=== PATIENT | female | born 1965 | race Caucasian/White ===

== ENCOUNTER → 2017-09-27 13:47 | Outpatient (POV) | payer MEDICARE, MEDICAID, SELFPAY | PROVIDERS: Visit Provider Internal Medicine | DX: Z00.00 Encounter for general adult medical examination without abnormal findings (principal) ==

== ENCOUNTER → 2018-04-04 13:32 | Outpatient (POV) | payer MEDICARE, MEDICAID, SELFPAY | PROVIDERS: Visit Provider Internal Medicine | DX: Z00.00 Encounter for general adult medical examination without abnormal findings (principal) ==

== ENCOUNTER → 2018-12-05 12:54 | Outpatient (POV) | payer MEDICARE, MEDICAID, SELFPAY | PROVIDERS: Visit Provider Internal Medicine | DX: Z00.00 Encounter for general adult medical examination without abnormal findings (principal) ==

== ENCOUNTER → 2018-12-11 14:22 | Outpatient (CLI) | payer MEDICARE, MEDICAID, SELFPAY ==
[2018-12-11 15:20] VITALS: PULSE 80; PULSE 84
== END ==
PROVIDERS: PCP Physician Assistant; Visit Provider Internal Medicine
DX: J45.909 Unspecified asthma, uncomplicated (principal); R06.02 Shortness of breath
CPT/HCPCS: 94060; 94640

== ENCOUNTER → 2019-03-13 15:56 | Outpatient (POV) | payer MEDICARE, MEDICAID, SELFPAY | PROVIDERS: Visit Provider Internal Medicine | DX: Z00.00 Encounter for general adult medical examination without abnormal findings (principal) ==

== ENCOUNTER 2019-04-02 09:00 | Outpatient (RCR) | payer MEDICARE, MEDICAID, SELFPAY | END 2019-04-25 15:41 | disposition home or self-care (01) | LOC: PT.CARL 09:00 | PROVIDERS: PCP Physician Assistant; Visit Provider Podiatrist Foot & Ankle Surgery | DX: M76.62 Achilles tendinitis, left leg (principal); M72.2 Plantar fascial fibromatosis | CPT/HCPCS: 97014; 97033; 97035; 97110; 97112; 97140; 97163; 97164; G0283 ==

== ENCOUNTER 2020-06-06 10:12 | Emergency (ER) | payer MEDICARE, MEDICAID, SELFPAY ==
--- NOTE | 2020-06-06 10:13 | XR_ITS ---
PROCEDURE: XR CHEST 2V CLINICAL HISTORY: cough COMPARISON: No exams were available for comparison FINDINGS: The cardiomediastinal silhouette and pulmonary vascularity are within normal limits. Suspect COPD changes. There is calcified granuloma in the superior segment of the right lower lobe and calcified nodes are present in the mediastinum. No acute bony abnormalities. IMPRESSION: COPD. No acute finding Dictated by: Jerry Caputo MD 06/06/2020 10:36 Jerry Caputo MD in [place] 06/06/2020 10:36
[2020-06-06 10:20] VITALS: BP 137/75; PULSE 84; RESP 20; TEMP 36.9; O2SAT 97; BMI 25.0
--- NOTE | 2020-06-06 10:41 | HMH.EDUTC ---
[facility] [place] Clinical Impression: COPD exacerbation Disposition: Home, Self-Care Condition on Discharge: Good Instructions: DI for Chronic Obstructive Pulmonary Disease Prescriptions: predniSONE [Prednisone 20mg Tab] 20 mg PO BID 5 Days #10 tab Transmission Status: Pending to [facility] Azithromycin [Zithromax 500mg Tab] 500 mg PO DAILY #3 tab Transmission Status: Pending to [facility] Referrals: Navya Fall APRN [Primary Care Provider] - Time of Disposition: 10:50 Medical Decision Making - Cr Inquiry Pt receiving controlled substance: No Vital Signs: 06/06/20 10:20 Temperature 98.4 F Temperature Source Oral Pulse Rate [Right Brachial] 84 Respiratory Rate 20 Blood Pressure [Right Arm] 137/75 Blood Pressure Mean [Right Arm] 95 02 Sat by Pulse Oximetry 97 Oxygen Delivery Method Room Air - Radiology Data #1 Image(s): Chest Image Reviewed: Yes I have reviewed radiologist's interpretation Preliminary Findings: Normal/NAD [facility] [place] HPI - General Stated complaint: Possible pneumonia Time Seen by Provider: 06/06/20 10:41 Mode of Arrival: Ambulatory Source of Information: Patient Limitations: No Limitations Description of Symptoms (Recalled from Triage Doc. by RN): PATIENT STATES SHE SPOKE WITH [facility] ON TUESDAY WITH C/O LEFT UPPER BACK PAIN. PATIENT STATES SHE WAS INFORMED BY THE CLINIC TO COME HERE FOR A CHEST X-RAY AND BLOOD WORK TO CHECK HER FOR PNEUMONIA. DENIES FEVER, COUGH, OR SOA. HEENT Symptoms (Recalled from RN notes): No Resp Symptoms (Recalled from RN notes): No Skin Symptoms (Recalled from RN notes): No MS Symptoms (Recalled from RN notes): Yes Functional Status (Recalled from RN notes): WNL - History of Present Illness Provider Complaint: Shortness of breath, pain across back, wheezing X 3-4 days. No fever. No vomiting or diarrhea. No chest pain or hemoptysis. No loss of taste or smell. History of asthma/COPD. Has albuterol inhaler. Onset (ago): day(s) (4) Location: chest Relieving factors: none Exacerbating factors: none Associated symptoms: cough Treatments prior to arrival: none - Related Data Previous Rx's Medication Instructions Recorded Azithromycin [Zithromax 500mg 500 mg PO DAILY #3 tab 06/06/20 Tab] predniSONE [Prednisone 20mg 20 mg PO BID 5 Days #10 tab 06/06/20 Tab] Allergies Allergy/AdvReac Type Severity Reaction Status Date / Time No Known Allergies Allergy Verified 06/06/20 10:41 - Worker's Comp Is this a Worker's Comp case?: No [facility] History - Hepatitis A Screen Drug use history?: No High risk sexual behaviors?: No History of sexually transmitted infection?: No Currently employed?: No Childcare worker?: No Do you have indoor plumbing?: Yes Do you have electricity?: Yes Attestation statement:: This patient has been screened for Hepatitis A risk factors. I have reviewed the patient's past medical history: Yes Laterality Cases: Bilateral: Tonsillectomy - Social History Alcohol Intake: never Occupational Status: other ROS Obtained: Yes All systems reviewed & no additional complaints - Respiratory Respiratory: Reports shortness of breath, Reports dyspnea Physical Exam - General General appearance: alert, in no apparent distress - Head Head exam: atraumatic, normocephalic, normal inspection - Eye Eye exam: Present: normal appearance, PERRL, EOMI - ENT ENT exam: Present: normal exam, normal oropharynx, mucous membranes moist, TM's normal bilaterally, normal external ear exam - Neck Neck exam: Present: normal inspection, full ROM, trachea midline. Absent: meningismus, lymphadenopathy - Chest Chest inspection: Present: normal inspection, symmetric chest wall rise. Absent: tenderness - Respiratory Respiratory exam: Present: wheezes. Absent: respiratory distress - Cardiovascular Cardiovascular exam: Present: regular rate, normal rhythm. Absent: JVD - Abdo
[2020-06-06 11:05] VITALS: BP 137/75; PULSE 84; RESP 20; TEMP 36.9; O2SAT 97
== END 2020-06-06 11:07 | disposition home or self-care (01) ==
PROVIDERS: Emergency Provider Physician Assistant; PCP Nurse Practitioner Family
DX: J44.1 Chronic obstructive pulmonary disease with (acute) exacerbation (principal); Z79.899 Other long term (current) drug therapy
CPT/HCPCS: G0463; 71046; 99202

== ENCOUNTER → 2021-05-05 07:54 | Outpatient (CLI) | payer MEDICARE, MEDICAID, SELFPAY ==
--- NOTE | 2021-05-05 08:45 | PC.NURSE ---
PFT and 6 minute walk test completed without incident. Albuterol 0.083% given via HHN, per protocol, Pt tolerated well.
[2021-05-05 10:46] LABS: Basophils % 0.7 % (0.1-2.0); Eosinophils # 0.2 K/mm3 (0.0-0.4); Eosinophils % 2.8 % (0.1-12.0); Hematocrit 43.8 % (37.0-47.0); Hemoglobin 14.7 g/dL (12.2-16.2); Lymphocytes # 2.1 K/mm3 (0.7-4.5); Lymphocytes % 37.8 % (10-50); Mean Corpuscular HGB Conc 33.6 g/dL (31.8-35.4); Mean Corpuscular Hemoglobin 30.6 pg (27.0-31.2); Mean Corpuscular Volume 91.2 fl (81-99); Mean Platelet Volume 7.4 fl (7.4-10.4); Monocytes # 0.3 K/mm3 (0.1-1.0); Monocytes % 6.2 % (1.7-9.3); Neutrophils # 2.9 K/mm3 (1.8-7.8); Neutrophils % 52.4 % (37.0-80.0); Platelet Count 219 K/mm3 (142-424); Red Cell Distribution Width 12.8 % (11.5-17.5); White Blood Count 5.5 K/mm3 (4.8-10.8)
[2021-05-08 19:12] LABS: D001-IgE D pteronyssinus <0.10 kU/L (Class 0); D002-IgE D farinae <0.10 kU/L (Class 0); E001-IgE Cat Dander <0.10 kU/L (Class 0); E005-IgE Dog Dander 0.13 kU/L (Class 0/I); E072-IgE Mouse Urine <0.10 kU/L (Class 0); G002-IgE Bermuda Grass <0.10 kU/L (Class 0); G006-IgE Timothy Grass <0.10 kU/L (Class 0); I006-IgE Cockroach, German 3.81 kU/L (Class III); Immunoglobulin E, Total 103 IU/mL (6-495); M001-IgE Penicillium chrysogen <0.10 kU/L (Class 0); M002-IgE Cladosporium herbarum <0.10 kU/L (Class 0); M003-IgE Aspergillus fumigatus <0.10 kU/L (Class 0); M006-IgE Alternaria alternata <0.10 kU/L (Class 0); T001-IgE Maple/Box Elder <0.10 kU/L (Class 0); T003-IgE Common Silver Birch <0.10 kU/L (Class 0); T006-IgE Cedar, Mountain <0.10 kU/L (Class 0); T007-IgE Oak, White <0.10 kU/L (Class 0); T008-IgE Elm, American <0.10 kU/L (Class 0); T010-IgE Walnut 0.22 kU/L (Class 0/I); T011-IgE Maple Leaf Sycamore <0.10 kU/L (Class 0); T014-IgE Cottonwood <0.10 kU/L (Class 0); T015-IgE Ash, White 0.22 kU/L (Class 0/I); T022-IgE Pecan, Hickory <0.10 kU/L (Class 0); T070-IgE White Mulberry <0.10 kU/L (Class 0); W001-IgE Ragweed, Short <0.10 kU/L (Class 0); W011-IgE Thistle, Russian <0.10 kU/L (Class 0); W014-IgE Pigweed, Common <0.10 kU/L (Class 0); W018-IgE Sheep Sorrel <0.10 kU/L (Class 0)
== END ==
PROVIDERS: PCP Nurse Practitioner Family; Visit Provider Internal Medicine Pulmonary Disease
DX: R06.00 Dyspnea, unspecified (principal); J45.909 Unspecified asthma, uncomplicated
CPT/HCPCS: 36415; 82785; 85025; 86003; 94060; 94618; 94726; 94729

== ENCOUNTER 2022-09-21 09:00 | Outpatient (RCR) | payer MEDICARE, MEDICAID, SELFPAY | END 2022-10-01 12:20 | disposition home or self-care (01) | LOC: PT 09:00 | PROVIDERS: PCP Family Medicine; Visit Provider Nurse Practitioner | DX: M54.2 Cervicalgia (principal) | CPT/HCPCS: 20560; 97010; 97012; 97014; 97035; 97110; 97140; 97163; 97164; G0283 ==

== ENCOUNTER 2024-12-10 12:48 | Outpatient (CLI) | payer MEDICARE, MEDICAID, SELFPAY ==
--- OUTSIDE RECORDS SUMMARY | 2024-12-10 12:51 | XMS_ITS | Data Portability ---
Author Organization [facility] ADMIN Address [address] [place] [id number] Assessment No assessment recorded. Plan of Treatment Reminders Order Date Submit Date Provider Last Modified By Organization Details Last Modified Time Details Appointments None record ed. Lab None record ed. Referral None record ed. Procedures None record ed. Surgeries None record ed. Imaging None record ed. Medication Orders None record ed. Patient TargetsNo targets recorded. Patient InstructionsNo instructions recorded. Reason for Referral None Reported. Results Created Date Observation Date Name Description Value Unit Range Abnormal Flag Note LastModifiedBy Organization Detail LastModifiedTime 07/20/19 23 07/20/2022 audio gram No observ ation record ed. BARCODE Not Available 2022 17:00:17 Result Notes None recorded. Problems Name Problem SNOMED Code Status Onset Date Resolution Date Notes Provider Name and Address Organization Details Recorded Time Abnormal auditory perception [id number] Active 023 EDIN MAURERTZ, AUD [address] [facility], [place], [address] , [facility] & [place] 16:56:38 Problem Notes None recorded. Procedures Surgical History Date Name Laterality Status Provider Name and Address Organization Details Recorded Time colonoscopy completed Ava Condon [facility] & [place] 07/20/2022 16:42:43 Imaging Results None recorded. Procedure Notes None recorded. Medical Equipment None Reported. Allergies No known drug allergies Medications Name Sig Start Date Stop Date Status Note LastModified by Organization Details LastModified Time neomycin-po lymyxin-hyd rocort 3.5 mg/mL-10,00 0 unit/mL-1 % ear solution INSTILL 10 DROPS INTO AFFECTED EAR(S) BY OTIC ROUTE EVERY 6 HOURS 07/20 completed Not Available Not Available Not Available ipratropium 0.5 mg-albutero l 3 mg (2.5 mg base)/3 mL nebulizatio n soln active Not Available Not Available Not Available azithromyci n 250 mg tablet 07/20 completed Not Available Not Available Not Available citalopram 10 mg tablet active Not Available Not Available Not Available prednisone 20 mg tablet 07/20 completed Not Available Not Available Not Available prednisone 10 mg tablets in a dose pack 07/20 completed Not Available Not Available Not Available montelukast 10 mg tablet active Not Available Not Available Not Available diclofenac sodium 50 mg tablet,iesha yed release active Not Available Not Available Not Available albuterol sulfate HFA 90 mcg/actuati on aerosol inhaler active Not Available Not Available Not Available fluticasone propionate 50 mcg/actuati on nasal spray,suspe nsion active Not Available Not Available Not Available cholecalcif rama (vitamin D3) 1,250 mcg (50,000 unit) capsule active Not Available Not Available Not Available Breo Ellipta 200 mcg-25 mcg/dose powder for inhalation active Not Available Not Available N ot Available Vitals Date Recorded Body height Body mass index (BMI) Body weight Body temperature Heart rate Systolic And Diastolic Provider Name and Address Organization Details Last Updated DateTime 3 167.64 cm 24.7 kg/m2 60589.6 3 g 97.3 [degF] 75 /min 106/68 mm[Hg] [facility] & [place] 3 16:40:10 Social History None recorded. Functional Status None recorded. Mental Status None recorded. Family History Nothing Reported. Medical History No medical history recorded. Gynecological HistoryNo gynecological history recorded. Obstetrics History GPAL:G 0 P 0 0 0 0 Past Encounters Encounter ID Performer Location Encounter Start Date Encounter Closed Date Diagnosis/Indication Diagnosis SNOMED-CT Code Diagnosis ICD10 Code Diagnosis Note [id number] Lavern Cuevas MD [facility] [facility], [place] [address] 07/20/2022 16:29:48 07/20/2022 17:02:57 Pain of temporomandibular joint 98793329 M26.629 Audiogram in office today was within normal limits and was her tympanogra m. She does not have fluid on either ear today. She is painful when palpated on both TMJs. I suspect this is the source of her otalgia. I would like for her try taking ibuprofen when she starts to notice the fullness in her ears. I asked that she call the office should this not help. I will see her back as needed and would need to see her during an acute episode. [id number] PABLO RYAN [facility] [address] [place] [address], [facility] [place] [address] 07/20/2022 16:44:56 07/20/2022 16:54:26 Abnormal auditory perception 15917188 H93.299 Health Concerns Section Related Observation LastModified by Organization Detai ls LastModified Time None Recorded Concern Status LastModified by Organization Details LastModified Time None Recorded Advance Directives Directive None Recorded Payers Insurance Date Sequence Insurance Name Policy Number Policy Hope Covered Member ID Hope Member ID Guarantor Name 12/10/2023 1 [place] Rupal Spearsangel [id number] Rupal Spearsangel 01/31/2019 2 [place] Rupal Spearsrow [id number] Rupal Spearsangel 12/10/2023 2 [place] Rupal Spearsangel [id number] Rupal Spearsangel 12/10/2023 1 [employer] (MEDICARE REPLACEMENT/A DVANTAGE - PPO) Rupal Spearsangel [id number] Rupal Spearsangel 12/10/2023 2 [employer] [place] (MEDICAID HMO) Rupal Spearsangel [id number] Rupal Uriarte Notes Date Note Type Note Provider Name and Address Organization Details Recorded Time 07/20/2022 text/html 56yo female in t he office today to discuss ear fullness and decreased hearing. States she was recently treated with oral antibiotics and oral steroid for an ear infection. States she will sometimes have decreased hearing when her ear feels full. Also complains of jaw pain. Lavern Cuevas MD [address], [place], [address], [place] - [facility] - [place] & [place] 07/23/2022 09:37:09 07/20/2022 text/html Ms. Uriarte was seen today for an audiologic evaluation due to ongoing symptoms of R sided otalgia, R sided fullness , and occasional muffled hearing per Dr. Lavern Cuevas MD. Ms. Uriarte denies hearing loss, dizziness/vertigo, and excessive noise exposure. Otoscopic inspection was unremarkable bilaterally. EDIN MEEHAN, AUD [address] [facility], [place], [address], [facility] - [place] - [place] & [place] 07/20/2022 16:57:13 OBGyn Episode No OBEpisode recorded.
--- OUTSIDE RECORDS SUMMARY | 2024-12-10 12:51 | XMS_ITS | Clinical Summary ---
Author Organization [facility] ([place], [place], [place], [place]) Address [address] [place] [address] Care Team Providers Care Staff Radiation Therapist Name Role Phone RuslanBillie Maggie MURILLO Primary Care Provider [phone] Allergies No known active allergies Medications ibuprofen (ADVIL,MOTRIN) 800 MG tablet Take 1 tablet (800 mg total) by mouth 3 (three) times daily as needed. 12/24/2022 Active Breo Ellipta 200-25 mcg/dose DsDv 1 puff daily. 12/27/2022 Active fluticasone propionate (FLONASE) 50 mcg/actuation nasal spray 1 spray daily. 11/05/2022 Active Social History Tobacco Use Types Packs/Day Years Used Date Smoking Tobacco: Never Smokeless Tobacco: Never Tobacco Cessation:Counseling Given: Not Answered Alcohol Use Standard Drinks/Week Comments Not Currently 0 (1 standard drink = 0.6 oz pur e alcohol) Food Insecurity Answer Date Recorded Food run out past 12 months Not on file 05/23 Food did not last past 12 months Not on file 06/10/2023 Employment Answer Date Recorded Help finding and keeping a job Not on file 0 06/10/2023 Family and Community Support Answer Salvatore e Recorded Help with Day to Day Activities Not on file 06/10/2023 Feeling Lonely or Isolated Not on file 06/10 Educational Attainment Answer Date Ermias rded Speak language other than Uzbek at home Not on file 06/10/2023 Want help with school or training Not on file 06/10/2023 Substance Use Answer Date Recorded Used prescription meds for non-medical reasons N ot on file 06/10/2023 Used illegal drugs past 12 months Not on file 06/10/2023 Comments Unknown Sex and Gender Information Value Date Recorded Sex Assigned at Not on file Legal Sex Female 5:58 PM CDT Gender Identity Not on file Sexual Orientation Not on file Last Filed Vital Signs Vital Sign Reading Time Taken Comments Blood Pressure 126/80 02/03/2023 10:38 AM EDT Pulse 69 02/03/2023 10:38 AM EDT Temperature - - Respiratory Rate - - Oxygen Saturation - - Inhaled Oxygen Concentration - - Weight 69.3 kg (152 lb 12.8 oz) 023 10:38 AM EDT Height 167.6 cm (5' 6 ) 02/03/2023 10:3 8 AM EDT Body Mass Index 24.66 02/03/2023 10:38 AM EDT Plan of Treatment Health Maintenance Due Date Last Done Comments CT Colonography 1965 Colonoscopy 1965 Colorectal Cancer Screening 1965 FOBT/FIT 1965 Fit-DNA (Cologuard) 1965 Sigmoidoscopy 1965 Depression Screening (12+) 1977 Tobacco Cessation Counseling and Screening (12+) 1977 HIV Screening 1980 Hepatitis C Screening 11/04/1983 Pap Smear 1986 Breast Cancer Screening 2005 Lipid Panel 2010 Pneumococcal 50+ years (1 of 1 - PCV) 11/04/2015 Shingles Vaccine (Zoster) (1 of 2) 11/04/2015 DTAP/TDAP/TD VACCINES (3 - Td or Tdap) 02/07/2022, 12/21/2011 Medicare Initial AWV [id number] 05/24/2022 COVID-19 VACCINE ( - season) 2024 Influenza Vaccine (#1) 2025 05/23/2013 Insurance [employer] MEDICARE PPO Care Teams Staff Radiation Therapist Relationship Specialty Start Date End Date Billie Mercer, REHABILITATION MEDICINE PHYSICIAN [address] [place] [address] PCP - General Family Medicine 01/27/23
--- OUTSIDE RECORDS SUMMARY | 2024-12-10 12:51 | XMS_ITS | Clinical Summary ---
Author Organization Healthcare Address [address] [place] [address] Care Team Providers Care Ear Nose Throat Physician Name Role Phone Unavailable Primary Care Provider Unavailabl e Immunizations Immunization Administration Dates Next Due Influenza, seasonal, injectable 05/23/2013 Family History Medical History Relation Name Comments Diabetes Other Lung cancer Sibling Relation Name Status Comments Other Sibling Social History Tobacco Use Types Packs/Day Years Used Date Smoking Tobacco: Never Comments Unknown Sex and Gender Information Value Date Recorded Sex Assigned at Not on file Legal Sex Female 8:55 PM EDT Gender Identity Not on file Sexual Orientation Not on file Last Filed Vital Signs Vital Sign Reading Time Taken Comments Blood Pressure 105/60 03/13/2019 3:45 PM EDT Pulse 73 03/13/2019 3:45 PM EDT Temperature 36.4 C (97.6 F) 03/13/2019 3:45 PM EDT Respiratory Rate 16 03/13/2019 3:45 PM EDT Oxygen Saturation - - Inhaled Oxygen Concentration - - Weight 69.1 kg (152 lb 6.1 oz) 03/13/2019 3:45 P M EDT Height 167.6 cm (5' 6 ) 03/13/2019 3:45 PM EDT Body Mass Index 24.6 03/13/2019 3:45 PM EDT Plan of Treatment Health Maintenance Due Date Last Done Comments [facility]-Depression Screening 1965 [facility]-/Child/Adol SDOH Screenings 1965 [facility]- SDOH Screenings 11/04/1983 [facility]-Adult SDOH Screenings 11/04/1983 [facility]-DTaP,Tdap,and Td Vaccine s (1 - Tdap) 1984 [facility]-Hepatitis B Vaccines (1 of 3 - 19+ 3-dose series) 1984 [facility]-Pap Smear 1986 [facility]-Cervical Cancer Screening 11/04/1995 [facility]-HPV/Cotest 11/04/1995 CT Colonography 2010 Colonoscopy 2010 FIT-DNA 2010 FIT 2010 FOBT 2010 Sigmoidoscopy 2010 [facility]-Colorectal Cancer Screening 2010 [facility]-Pneumococcal Vaccine: 50 + Years (1 of 1 - PCV) 11/04/2015 [facility]-Zoster Vaccines (1 of 2) 11/04/2015 XPH-SAOTL-52 Vaccine (1 - 20 24-25 season) 2024 [facility]-Influenza Vaccine (#1) 2025 05/23/2013 HPV Vaccines Aged Out No longer eligi ble based on patient's age to complete this topic [facility]-HIB Vaccines Aged Out No longer e ligible based on patient's age to complete this topic [facility]-Hepatitis A Vaccines Aged Out No longer eligible based on patient's age to complete this topic [facility]-IPV Vaccines Aged Out No longer e ligible based on patient's age to complete this topic [facility]-Rotavirus Vaccines Aged Out No lo nger eligible based on patient's age to complete this topic
--- OUTSIDE RECORDS SUMMARY | 2024-12-10 12:51 | XMS_ITS | Referral Summary ---
Author Organization [employer] ([place], [place], [place], [place]) Address [address] [place] [address] Care Team Providers Care Director Voice Name Role Phone RuslanBillie Maggie MURILLO Primary Care Provider [phone]- [phone] Allergies No known active allergies Medications ibuprofen [...] Date Ermias rded Speak language other than British at home Not on file 06/10/2023 Want [...] 02/03/2023 10:38 AM EDT Plan of Treatment Not on file Insurance [facility] HU[employer] MEDICARE PPO Care Teams Director Voice Relationship Specialty Start Date End Date Billie Mercer, DOG TRACK KENNEL MANAGER [address] [place] [address] PCP - General Family Medicine 01/27/23
--- OUTSIDE RECORDS SUMMARY | 2024-12-10 12:51 | XMS_ITS | Data Portability ---
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 We will change medication to cetirizine as noted below. We will treat symptoms based on allergic rhinitis and seasonal allergies. Advised patient to return if symptoms do not improve over the next week. [place] [id number] Not available 10/07/2022 15:25:31 Plan of Treatment Reminders Order Date Submit Date Provider Last Modified By Organization Details Last Modified Time Details Appointments None recorded. Lab rapid strep group A, throat [address], [address], 3 15:08:05 rapid strep group A, throat 2021 022 [email or web address], [address], 13:06:50 rapid flu (A+B) 2021 022 [email or web address] [address], [address], 12/09/202 2 13:06:50 rapid SARS CoV 2 Ag, QL, IA, upper respiratory specimen 2021 022 [email or web address] 2 [facility], [address] [place] [address], [address], 2 13:06:50 Referral otolaryngol ogist referral 2022 023 CRISTOPHER Cuevas MD, [address] [place], [address], 3 11:13:15 Procedures None recorded. Surgeries None recorded. Imaging XR, foot, 3 or more view 2022 023 CRISTOPHER Not available 3 08:48:35 XR, cervical spine, 2 or 3 view 2022 023 [facility] Centralized Scheduling, [address] [place], [address], 3 13:47:27 XR, knee, 3 view 2022 023 [facility] Centralized Scheduling, [address] [place], [address], 3 13:48:38 MAMMO, screening, bilateral [email or web address] (Radiology), [address] [place], [address], 3 10:49:01 Medication Orders prednisone 20 mg tablet 2022 023 [facility], [address] [place] [address], [address], 3 16:29:20 ibuprofen 800 mg tablet 2022 023 [facility], [address] [place] [address], [address], 3 16:29:20 cetirizine 10 mg tablet 2022 023 [facility], [address] [place] [address], [address], 3 15:21:28 fluticasone propionate 50 mcg/actuati on nasal spray,suspe nsion 2022 023 [facility], [address] [place] [address], [address], 3 15:21:28 Zithromax Z-Scott 250 mg tablet 2022 023 [email or web address] 3 [facility], [facility] [place], [address], 3 09:40:13 prednisone 20 mg tablet 2022 023 [email or web address] 3 [facility], [facility] [place], [address], 3 09:40:38 azithromyci n 250 mg tablet 2021 022 [email or web address] 3 [facility], [facility] [place], [address], 3 09:40:13 Patient TargetsNo targets recorded. Patient InstructionsNo instructions recorded. 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 No furth er testi ng will be perfo rmed. If clini ortega indic ated, recol lecti on using a metho d to minim ize conta minat ion, with promp t trans archana to Urine Cultu re Trans port Tube, is recom urszula d. NO COLLE CTION DATE RECEI PRINCESS. WE HAVE USED THE DATE THE SPECI MEN WAS RECEI PRINCESS BY THIS LABOR ATORY THE COLLE CTION DATE. IF THIS IS INCOR RECT, PLEAS E CONTA CT CLIEN T SERVI SOCORRO. PHONE NUMBE R: [phone] Not Available [employer] [place], [place], [address] 04/22/2022 20:45:17 04/30/20 22 04/30/2022 rapid SARS CoV 2 Ag, QL, IA, upper respi rator y speci men SARS CoV Ag negati ve Not Available [address], [address], 04/30/2022 10:58:00 04/30/20 22 04/30/2022 rapid flu (A+B) Flu A negati ve Not Available [address], [address], 04/30/2022 10:57:52 04/30/20 22 04/30/2022 rapid flu (A+B) Flu B negati ve Not Available [address], [address], 04/30/2022 10:57:52 04/30/20 22 04/30/2022 rapid strep group A, throa t Strep negati ve Not Available [address], [address], 04/30/2022 10:57:34 10/08/19 23 10/07/2022 rapid strep group A, throa t Strep negati ve Not Available [address], [place], [address], 10/07/2022 14:54:14 07/24/19 23 07/23/2022 XR, cervi kika spine , 2 or 3 view [facility] [address] [place] 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 There is mild narrow ing of the C4-5 disc with mild spurri ng. There is severe narrow ing at C5-6 disc with mild to modera te spurri ng and mild retrol isthes is of C5 on C6. Remain ing disc height s appear mainta ined and alignm ent otherw ise appear s normal . Impres heather: Degene rative disc diseas e as detail ed. Dictat ed By: RENETTA WOODS Transc ribed By: sylvie giraldo Transc ribed On: 07/24/19 11:37 AM Electr onical ly signed by: RENETTA WOODS 07/24/19 Thank you for referr ing RUPAL HADDAD to [facility]. Legall y authen ticate d by UDAY Beth MD 07-23 13:40: 19 CC'ed Logic: Orderi ng Provid er: RENNY TENORIO CC Provid er: RENNY TENORIO Attend ing Provid er: RENNY TENORIO Referr ing Provid er: RENNY TENORIO Admitt ing Provid er: RENNY TENORIO [email or web address] [facility] (Radiology) [address] [place] [address] [place], [address], 07/26/2022 14:07:25 07/24/19 23 07/23/2022 XR, knee, 3 view [facility] [address] [place] 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 There is marked patell a chance. 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 This appear s chroni c. There is modera te narrow ing of the medial and latera l compar tments . There is normal alignm ent of the medial and latera l compar tments . There is no signif icant spurri ng. There may be a small effusi on. Impres heather: Severe patell a chance. Medial and latera l compar tment joint narrow ing. Dictat ed By: RENETTA WOODS Transc ribed By: sylvie giraldo Transc ribed On: 07/24/19 11:53 AM Electr onical ly signed by: RENETTA WOODS 07/24/19 Thank you for referr ing R[facility]ADD[facility] to [facility]. Legall y authen ticate d by UDAY Beth MD 07-23 13:40: 25 CC'ed Logic: Orderi ng Provid er: RENNY TENORIO CC Provid er: RENNY TENORIO Attend ing Provid er: RENNY TENORIO Referr ing Provid er: RENNY TENORIO Admitt ing Provid er: RENNY TENORIO [id number] [place] [address] (Radiology) [address] [place], [address], 07/26/2022 14:07:26 07/24/19 23 07/23/2022 MAMMO , scree joey, digit al, bilat eral [facility] 9 [facility] [address] [address] Phone: Fax: Name: RUPAL HADDAD Exam Date: 07/24/19 : [birth year] Age 56 Gender : F Access ion: [id number] Physic bob: HMOE MERCER Facili ty: [facility] Facili ty HSV: Outpat ient Exam: SCREEN MAMMO W CAD BILAT Bilate ral digita l screen ing mammog jenni with CAD and with breast tomosy nthesi s Findin gs: Compar dexter dates are 05/25/21 and 0. Tissue is hetero geneou sly dense. There are some benign -appea ring calciu m deposi ts. There are no new or suspic ious densit ies. There have been no signif icant change s. There are no areas of focal mammog raphic concer n. Impres heather: BI-RAD S 1, negati ve Yearly follow -up mammog elisa is recomm ended. This patien t will be sent a letter from the mammog elisa depart ment with their mammog elisa result s. Dictat ed By: RENETTA WOODS Transc ribed By: sylvie giraldo Transc ribed On: 07/24/19 1:48 PM Electr onical ly signed by: RENETTA WOODS 07/24/19 Thank you for referr ing RUPAL HADDAD to [facility]. Legall y authen ticate d by UDAY Beth MD 07-23 15:02: 06 CC'ed Logic: Orderi ng Provid er: RENNY TENORIO CC Provid er: RENNY TENORIO Attend ing Provid er: RENNY TENORIO Referr ing Provid er: RENNY TENORIO Admitt ing Provid er: RENNY TENORIO [email or web address] [facility] (Radiology) [address] [place], [address], 07/26/2022 13:37:07 12/28/19 23 XR, foot, 3 or more view No observ ation record ed. [email or web address] Not Available 12/28 10:31:30 11/16/19 24 07/23/2022 MAMMO , scree joey, digit al, bilat eral No observ ation record ed. [email or web address] [facility] (Radiology) [address] [place] [address] [place], [address], 03/02/2024 11:38:42 Result Notes Documentation Provider Name and Address Organization Details Recorded Time Xr, Cervical Spine, 2 Or 3 View : [address] [place] [address] Name: RUPAL HADDAD Exam Date: 07/23/2022 : 1965 Age 56 Gender: F Physician: BILLIE MERCER Facility: [facility] Facility HSV: Outpatient Exam: CERVICL 2 TO 3V Cervical spine History: Neck pain Findings: 3 views. There is mild narrowing of the C4-5 disc with mild spurring. There is severe narrowing at C5-6 disc with mild to moderate spurring and mild retrolisthesis of C5 on C6. Remaining disc heights appear maintained and alignment otherwise appears normal. Impression: Degenerative disc disease as detailed. Dictated By: RENETTA MILLER Transcribed By: sylvie moyer Transcribed On: 07/23/2022 11:37 AM Electronically signed by: RENETTA MILLER 07/23/2022 Thank you for referring RUPAL HADDAD to [facility]. Legally authenticated by ANGEAL Beth MD 2022-07-23 13:40:19 CC'ed Logic: Ordering Provider: RENNY GALAN CC Provider: RENNY GALAN Attending Provider: RENNY GALAN Referring Provider: RENNY GALAN Admitting Provider: RENNY ROCHA [facility], [facility] [employer] 07/26/2022 14:07:25 Xr, Knee, 3 View : [address] [place] [address] Name: RUPAL HADDAD Exam Date: 07/23/2022 : 1965 Age 56 Gender: F Physician: BILLIE MERCER Facility: [facility] Facility HSV: Outpatient Exam: KNEE 3V LT Left knee History: Pain and swelling Findings: 3 views. There is marked patella chance. The inferior posterior pole of the patella abuts the anterior femur with slightly concave indented cortex. This appears chronic. There is moderate narrowing of the medial and lateral compartments. There is normal alignment of the medial and lateral compartments. There is no significant spurring. There may be a small effusion. Impression: Severe patella chance. Medial and lateral compartment joint narrowing. Dictated By: RENETTA MILLER Transcribed By: sylvie moyer Transcribed On: 07/23/2022 11:53 AM Electronically signed by: RENETTA MILLER 07/23/2022 Thank you for referring RUPAL HADDAD to [facility]. Legally authenticated by ANGELA Beth MD 2022-07-23 13:40:25 CC'ed Logic: Ordering Provider: RENNY GALAN CC Provider: RENNY GALAN Attending Provider: RENNY GALAN Referring Provider: RENNY GALAN Admitting Provider: RENNY ROCHA [facility] [employer] 07/26/2022 14:07:26 Mammo, Screening, Digital, Bilateral : [address] [place] [address] Name: URPAL HADDAD Exam Date: 07/23/2022 : 1965 Age 56 Gender: F Physician: BILLIE MERCER Facility: [facility] Facility HSV: Outpatient Exam: SCREEN MAMMO W CAD BILAT Bilateral digital screening mammogram with CAD and with breast tomosynthesis Findings: Comparison dates are 05/25/21 and 12/10/19. Tissue is heterogeneously dense. There are some benign-appearing calcium deposits. There are no new or suspicious densities. There have been no significant changes. There are no areas of focal mammographic concern. Impression: BI-RADS 1, negative Yearly follow-up mammography is recommended. This patient will be sent a letter from the mammography department with their mammography results. Dictated By: RENETTA MILLER Transcribed By: sylvie moyer Transcribed On: 07/23/2022 1:48 PM Electronically signed by: RENETTA MILLER 07/23/2022 Thank you for referring RUPAL HADDAD to [facility]. Legally authenticated by ANGELA Beth MD 2022-07-23 15:02:06 CC'ed Logic: Ordering Provider: RENNY GALAN CC Provider: RENNY GALAN Attending Provider: RENNY GALAN Referring Provider: RENNY GALAN Admitting Provider: RENNY correa, [employer]. 07/26/2022 13:37:07 Problems Name Problem SNOMED Code Status Onset Date Resolution Date Notes Provider Name and Address Organization Details Recorded Time Chronic obstruct rogers pulmonar y disease 51510627 Active 2020 Problem Code: J44.9; Problem Code Type: ICD-10; Not Available [facility] 21:11:35 Dysuria 89166593 Completed 202007/22/2022 Problem Code: R30.0; Problem Code Type: ICD-10; WILNER correa, [employer] 09:41:23 Screenin g mammogra phy Completed 202007/22/2022 Problem Code: Z12.31; Problem Code Type: ICD-10; WILNER correa, [employer] 09:41:22 Screenin g for malignan t neoplasm of colon Completed 202008/10/2021 Not Available [employer] 21:11:35 Body mass index 20-24 - normal 104399629 Active 2020 Not Available [employer] 21:11:36 Vitamin deficien cy 07380556 Active 2020 Problem Code: E56.9; Problem Code Type: ICD-10; Not Available [facility] 2 21:11:35 Temporal finding 510663549 Completed 202007/22/2022 Problem Code: Z13.6; Problem Code Type: ICD-10; WILNER correa, [employer] 3 09:41:22 Otogenic otalgia 62375186 Completed 202107/22/2022 WILNER correa, [employer] 3 09:41:23 Menopaus e present 266298843 Active 2021 Problem Code: N95.1; Problem Code Type: ICD-10; Not Available [facility] 2 21:11:36 Acute bronchit is 77079618 Completed 202107/22/2022 WILNER correa, [employer] 3 09:41:22 Vomiting 688105765 Completed 202107/22/2022 WILNER correa, [employer] 3 09:41:23 Sore throat 538437373 Completed 202107/22/2022 WILNER correa, [employer] 3 09:41:23 Pain of ear 255075035 Completed 202207/22/2022 WILNER correa, [employer] 3 09:41:23 Allergic rhinitis 05326817 Active [address], [address] , [employer] 3 15:05:45 Pain in throat 980378300 Active [address], [address] , [employer] 3 15:08:08 Problem Notes None recorded. Procedures Surgical History Date Name Laterality Status Provider Name and Address Organization Details Recorded Time 3 Most Recent Mammogram completed Joanajosé luis Simental [employer] 10/07/2022 14:48:38 Colposcopy completed WILNER AJ [employer] 07/22/2022 09:40:03 Imaging Results None recorded. Procedure Notes None recorded. Medical Equipment None Reported. Allergies Allergen ID Allergen Name Allergen Category Reaction Reaction Severity Criticality Documentation Date Start Date Code Code System Note Provider Name and Address Organization Details Recorded Time 64080 Avelox medicatio n Not available Not available Not available 01/26/2022 19511 6 RxNorm Not Available [facility] 2 22:56:57 Medications Name Sig Start Date Stop Date Status Note LastModified by Organization Details LastModified Time Prescriptio n - Renewal active Not Available Not Available Not Available neomycin-po lymyxin-hyd rocort 3.5 mg/mL-10,00 0 unit/mL-1 % ear solution instill 10 drops into affected ear(s) by otic route every 6 hours 08/31 completed Not Available Not Available Not Available ipratropium 0.5 mg-albutero l 3 mg (2.5 mg base)/3 mL nebulizatio n soln inhale 3 millilite rs by nebulizat ion route 4 times per day as needed active Not Available Not Available No t Available cetirizine 10 mg tablet TAKE ONE TABLET BY MOUTH EVERY DAY active Not Available Not Available No t Available azithromyci n 250 mg tablet TAKE 2 TABLETS (500 MG) BY ORAL ROUTE ONCE DAILY FOR 1 DAY THEN 1 TABLET (250 MG) BY ORAL ROUTE ONCE DAILY FOR 4 DAYS 07/22 completed Not Available Not Available Not Available ibuprofen 800 mg tablet TAKE ONE TABLET BY MOUTH THREE TIMES DAILY NEEDED active Not Available Not Available No t Available citalopram 10 mg tablet take 1 tablet (10 mg) by oral route once daily active Not Available Not Available No t Available prednisone 20 mg tablet TAKE ONE TABLET BY MOUTH THREE TIMES DAILY FOR THREE DAYS active Not Available Not Available No t Available prednisone 10 mg tablets in a dose pack As directed 10/24 completed Not Available Not Available Not Available cephalexin 500 mg tablet take 1 tablet (500 mg) by oral route bid 08/032 completed Not Available Not Available Not Available montelukast 10 mg tablet take 1 tablet (10 mg) by oral route once daily active Not Available Not Available No t Available diclofenac sodium 50 mg tablet,iesha yed release take 1 tablet (50 mg) by oral route 2 times per day active Not Available Not Available No t Available albuterol sulfate HFA 90 mcg/actuati on aerosol inhaler inhale 1 - 2 puffs (90 - 180 mcg) by inhalatio n route every 4 hours as needed active Not Available Not Available No t Available fluticasone propionate 50 mcg/actuati on nasal spray,suspe nsion inhale 1 spray (50 mcg) in each nostril by intranasa l route once a day active Not Available Not Available No t Available cholecalcif rama (vitamin D3) 1,250 mcg (50,000 unit) capsule Take one tablet weekly active Not Available Not Available No t Available azelastine 205.5 mcg (0.15 %) nasal spray spray 1 spray (205.5 mcg) in each nostril by intranasa l route at bedtime 2021 active Not Available Not Available Not Avai lable Breo Ellipta 200 mcg-25 mcg/dose powder for inhalation inhale 1 puff by inhalatio n route once daily at the same time each day active Not Available Not Available No t Available Vitals Date Recorded Body height Body mass index (BMI) Body weight Body temperature Heart rate Oxygen saturation Oxygen saturation in Arterial blood by Pulse oximetry Systolic And Diastolic Provider Name and Address Organization Details Last Updated DateTime 3 167.64 cm 24.8 kg/m2 12329.7 3 g 97.1 [degF] 83 /min 96 % 96 % 113/62 mm[Hg] Stephenie Ramos [address] [facility] [employer] 3 08:42:30 Date Recorded Body height Body mass index (BMI) Body weight Body temperature Heart rate Oxygen saturation Oxygen saturation in Arterial blood by Pulse oximetry Systolic And Diastolic Provider Name and Address Organization Details Last Updated DateTime 3 167.64 cm 24.5 kg/m2 35030.0 4 g 97.3 [degF] 76 /min 96 % 96 % 110/70 mm[Hg] WILNER ROCHA [address] [facility] 3 09:51:58 Date Recorded Body height Body mass index (BMI) Body weight Body temperature Heart rate Oxygen saturation Oxygen saturation in Arterial blood by Pulse oximetry Systolic And Diastolic Provider Name and Address Organization Details Last Updated DateTime 3 167.64 cm 25.2 kg/m2 36237.5 1 g 98 [degF] 71 /min 98 % 98 % 124/59 mm[Hg] Joana Kamille [employer] 3 14:47:37 Date Recorded Body height Body mass index (BMI) Body weight Heart rate Oxygen saturation Oxygen saturation in Arterial blood by Pulse oximetry Systolic And Diastolic Provider Name and Address Organization Details Last Updated DateTime 3 167.64 cm 24.9 kg/m2 87195.2 2 g 77 /min 97 % 97 % 126/67 mm[Hg] Court Guzmanchie [employer] 3 16:04:30 Date Recorded Body weight Body mass index (BMI) Body height Heart rate Oxygen saturation Oxygen saturation in Arterial blood by Pulse oximetry Body temperature Systolic And Diastolic Provider Name and Address Organization Details Last Updated DateTime 2 68828.6 3 g 24.7 kg/m2 167.64 cm 75 /min 98 % 98 % 97.9 [degF] 124/72 mm[Hg] VIVEK RICEDILAN [employer] 2 11:00:26 Social History Question Answer Notes LastModified by Organizat ion Details LastModified Time Tobacco Smoking Status Never Smoker WILNER correa [employer]. 07/22/2022 09:41:51 Do You Have An Advance Directive? No Information n ot available 04/30/2022 Is Your Home Air Conditioned? Yes Information not available 04/30/2022 Do You Wear A Helmet When Biking? Yes [email or web address] Information not available 07/22/2022 Are You Blind Or Do You Have Difficulty Seeing? No Information n ot available 04/30/2022 What Is Your Level Of Caffeine Consumption? Moderate [email or web address] Information not available 07/22/2022 Are You A Caregiver? No Information not available 04/30/2022 In The 14 Days Before Symptom Onset, Have You Had Close Contact With A Laboratory-confirm ed COVID-19 While That Case Was Ill? No [email or web address] Information n ot available 07/22/2022 In The 14 Days Before Symptom Onset, Have You Had Close Contact With A Person Who Is Under Investigation For COVID-19 While That Person Was Ill? No [email or web address] Information not available 07/22/2022 Have You Been To An Area Known To Be High Risk For COVID-19? No [email or web address] Information not available 07/22/2022 Are You Deaf Or Do You Have Serious Difficulty Hearing? No Information not available 04/30/2022 What Type Of Diet Are You Following? REGULAR Information n ot available 04/30/2022 Have There Been Any Changes To Your Family Or Social Situation? No Information no t available 04/30/2022 Are There Any Guns Present In Your Home? No [email or web address] Information not available 07/22/2022 Which Of Your Hands Is Dominant? Bilateral [email or web address] Information n ot available 07/22/2022 What Is Your Home Situation? Other [email or web address] Information not available 07/22/2022 Do You Have A Medical Power Of Production Line Operator? No Information not available 04/30/2022 What Was The Date Of Your Most Recent Tobacco Screening? 12/24/2022 [email or web address] Information not available 12/24/2022 Do You Have Any Pets? Yes [email or web address] Information not available 07/22/2022 Do You Use Protection During Sex? No [email or web address] Information not available 07/22/2022 What Is Your Relationship Status? [email or web address] Information not available 07/22/2022 Have You Repeated Any Grades? No [email or web address] Information not available 07/22/2022 Do You Use Your Seat Belt Or Car Seat Routinely? Yes Information not available 04/30/2022 Are You Sexually Active? Yes [email or web address] Information not available 07/22/2022 Do You Have Any Siblings? Yes Information not available 07/22/2022 Do You Have Smoke And Carbon Monoxide Detectors In Your Home? Yes Information not available 04/30/2022 Are You Passively Exposed To Smoke? No Information no t available 04/30/2022 Are There Any Smokers In Your House? Yes [email or web address] Information not available 07/22/2022 Do You Use Sunscreen Routinely? Yes Information not available 07/22/2022 Has Tobacco Cessation Counseling Been Provided? No Information not available 04/30/2022 Have You Recently Traveled Abroad? No Information not available 04/30/2022 Do You Have Difficulty Walking Or Climbing Stairs? No Information not available 04/30/2022 Are You Currently In School? No Information not available 04/30/2022 Do You Have Any Dietary Restrictions? No Information not available 04/30/2022 Sex: Female Functional Status Question Answer Note LastModified by Organizat ion Details LastModified Time Do you use any illicit or recreational drugs? No Information not available 04/30/2022 Do you or have you ever used any other forms of tobacco or nicotine? No Information not available 04/30/2022 What is your level of alcohol consumption? None Information not available 04/30/2022 Are you currently employed? No Information not available 04/30/2022 Do you have transportation difficulties? No Information not available 04/30/2022 Are you able to walk? YESWOREST Information not available 04/30/2022 Do you have difficulty doing errands alone? No Information not available 04/30/2022 Are you able to care for yourself? Yes Information not available 04/30/2022 Do you have difficulty dressing or bathing? No Information not available 04/30/2022 Mental Status Question Answer Note LastModified by Organizat ion Details LastModified Time Do you feel stressed (tense, restless, nervous, or anxious, or unable to sleep at night)? [id number] [email or web address] Information not available 07/22/2022 Do you have difficulty concentrating, remembering or making decisions? No Information no t available 04/30/2022 Are you or have you been involved with bullying? No [email or web address] Information not available 07/22/2022 Family History Relationship Description Onset Age of this Age Resolved Age Notes LastModified by Organization Details LastModified Time Father No current problems or disability [email or web address] Not available 06/2022 09:40:01 Mother Asthma [email or web address] Not available 07/22/2022 09:40:01 Maternal Grandmother Asthma [email or web address] Not available 06/2022 09:40:01 Medical History Condition Response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
--- OUTSIDE RECORDS SUMMARY | 2024-12-10 12:51 | XMS_ITS | Encounter Summary ---
Author Organization Healthcare Address [address] [place] [address] Care Team Providers Care Wave Solder Offbearer Name Role Phone Unavailable Primary Care Provider Unavailabl e Reason for Visit * Reason Comments Med Refill Encounter Details Date Type Department Care Team (Late st Contact Info) Description 10/28/2020 Refill [facility] [address] [place] [address] Ryan Singh MD [address] [place] [address] Social History Tobacco Use Types Packs/Day Years Used Date Smoking Tobacco: Never Comments Unknown Sex and Gender Information Value Date Recorded Sex Assigned at Not on file Legal Sex Female 8:55 PM EDT Gender Identity Not on file Sexual Orientation Not on file documented as of this encounter Miscellaneous Notes * Telephone Encounter - Sonia Baugh RN - 10/30/2020 10:20 AM EDT Patient has not been seen in the office since February 2019. This prescription has not been filled since 08/08/2019 she was given a 14 day supply with 8 refills. I tried to contact Rupal but no answer and no VM to leave a message. documented in this encounter Plan of Treatment Not on file documented as of this encounter Visit Diagnoses Not on filedocumented in this encounter
[2024-12-10] MEDS: ALBUTEROL 0.083% 2.5 MG/3 ML NEB IH (14:35)
[2024-12-10 14:40] VITALS: PULSE 81; PULSE 86
== END 2024-12-10 23:59 | disposition home or self-care (01) ==
LOC: RT 12:49
PROVIDERS: PCP Family Medicine; Visit Provider Internal Medicine Pulmonary Disease
DX: J44.9 Chronic obstructive pulmonary disease, unspecified (principal); R94.2 Abnormal results of pulmonary function studies
CPT/HCPCS: 94060; 94618; 94640; 94726; 94729

== ENCOUNTER 2025-04-29 11:00 | Outpatient (RCR) | payer MEDICARE, MEDICAID, SELFPAY | END 2025-04-29 23:59 | disposition home or self-care (01) | LOC: PT.CARL 11:00 | PROVIDERS: PCP Family Medicine; Visit Provider Orthopaedic Surgery Adult Reconstructive Orthopaedic Surgery | DX: M25.511 Pain in right shoulder (principal) | CPT/HCPCS: 97110; 97140; 97161 ==